=== PATIENT | male | born 1960 | race Caucasian/White ===

== ENCOUNTER 2024-09-11 07:02 | Emergency (ER) | payer MEDICARE, MEDICAID, SELFPAY ==
[2024-09-11 07:04] VITALS: BMI 22.4
[2024-09-11 07:12] VITALS: BP 95/63; PULSE 85; RESP 18; TEMP 36.6; O2SAT 98; BMI 22.4
--- NOTE | 2024-09-11 07:18 | XR_ITS ---
Examination: CT left knee, without contrast. 2-D sagittal reconstructions. 2-D coronal reconstructions. 3-D reconstructions. Date and time of exam:Left knee September 11, 2024 0725 hours INDICATIONS: Patient fell today with injury of the knee, knee pain CTDI: vol (mGy):7.8 DLP: (mGycm):264 Technique: Multiple 1.25 mm axial sections of the left knee without intravenous contrast have been obtained. 2-D sagittal and coronal reconstructions have been obtained. 3-D reconstructions have been obtained. Low dose protocols were performed. One or more of the following dose reduction techniques were used; automated exposure control, adjustment of the mA and/or KV according to patient size, use of iterative reconstruction technique. Findings: Acute comminuted fractures patella, up to 8 mm separation of the main fracture fragments Fracture distal femur which is old Visualized tibia and fibula are intact IMPRESSION: Acute comminuted fractures patella
--- NOTE | 2024-09-11 07:18 | XR_ITS ---
Examination: Knee, left , 3 views Technique: Knee AP, lateral, oblique 3 views Date and time of exam: August 23, 2024 0739 hours INDICATIONS: Patient fell last night with injury to the knee, knee pain. FINDINGS: Old fracture distal femoral shaft Below the knee amputation Patellar fracture which appears acute without major offset IMPRESSION: Patellar fracture which appears acute, clinical correlation advised
--- NOTE | 2024-09-11 07:19 | PD.EDRME ---
Rapid Medical Screening Exam RME Arrival date/time: 09/11/24 07:02 64-year-old male with DKA presents to the emergency department today for complaints of left knee pain and left tib-fib pain patient reports he had a fall last night Chief Complaint: Fall Time Seen by Provider: 09/11/24 07:10 Vital signs: Vital Signs Temperature 97.9 F 09/11/24 07:12 Pulse Rate 85 09/11/24 07:12 Respiratory Rate 18 09/11/24 07:12 Blood Pressure 95/63 09/11/24 07:12 Pulse Oximetry (%) 98 09/11/24 07:12 Oxygen Delivery Method Room Air 09/11/24 07:12
[2024-09-11] MEDS: HYDROcodone/APAP 5/325 TABLET 1 TAB PO (07:29)
[2024-09-11 08:54] VITALS: BP 123/70; PULSE 69; RESP 18; O2SAT 96
--- NOTE | 2024-09-11 09:16 | EKG_ITS ---
[facility] Test Date: 2024-09-11 Pat Name: MANUELA TINOCO Department: Room: - Gender: Male Manager Of Product: : 1960 Requested By: Bimal Chaudhry Order Number: [id number] Reading MD: Bimal Chaudhry Measurements Intervals [place] Rate: 67 P: 76 PA: 168 QRS: 53 QRSD: 89 T: 59 QT: 398 QTc: 420 Interpretive Statements SINUS RHYTHM WITH OCCASIONAL SUPRAVENTRICULAR PREMATURE COMPLEXES Compared to ECG 06/19/2023 15:39:47 Ventricular premature complex(es) no longer present /store/S0/[id number]/ecg/[id number].pdf
[2024-09-11] MEDS: KETOROLAC INJ 60 MG/2 ML VIAL 30 MG IM (09:47)
[2024-09-11] MEDS: HYDROmorphone INJ 2 MG/ML VIAL 1 MG IM (09:48)
[2024-09-11] MEDS: ONDANSETRON ODT 4 MG TABRAP PO (09:48)
[2024-09-11 10:45] LABS: Alanine Aminotransferase 43 U/L (10-49); Albumin, Serum 3.8 gm/dL (3.4-4.8); Albumin/Globulin Ratio 1.7 (1.2-2.2); Alkaline Phosphatase 71 U/L (46-116); Anion Gap 6 (7-16); Aspartate Amino Transferase 43 U/L (0-34); BUN/Creatinine Ratio 20 Ratio (12-20); Bilirubin,Total 0.5 mg/dL (0.3-1.2); Blood Urea Nitrogen 18 mg/dL (9-23); Calcium 8.6 mg/dL (8.3-10.6); Calcium (Corrected) 8.8 mg/dL (8.5-10.1); Carbon Dioxide 24.4 mMol/L (20.0-31.0); Chloride 110 mMol/L (98-107); Creatinine (Component) 0.9 mg/dL (0.6-1.3); Estimated Creatinine Clearance 91.6 mL/min (>60); Globulin 2.3 gm/dL (2.3-3.5); Glucose 77 mg/dL (74-106); Osmolality,Calculated 280 (275-295); Potassium 4.1 mMol/L (3.4-5.1); Sodium 140 mMol/L (136-145); Total Protein 6.1 gm/dL (5.7-8.2); eGFR > 60 See Note
[2024-09-11 10:52] LABS: Collection Type, Urine Clean Catch; Squamous Epithelial Cell,Urine 0 /hpf (0-5)
[2024-09-11 10:54] LABS: Basophils % (Auto) 1 % (0-2.5); Eosinophils # (Auto) 0.1 Thou/mm3 (0.0-0.5); Eosinophils % (Auto) 3 % (0-10); Hemoglobin 13.7 g/dL (13.5-16.0); Immature Granulocytes % (Auto) 0 % (0-0); Immature Granulocytes Auto 0.01 Thou/mm3 (0.00-0.00); Lymphocytes # (Auto) 1.3 Thou/mm3 (1.0-4.8); Lymphocytes % (Auto) 46 % (10-50); Mean Corpuscular HGB Conc 36.1 g/dl (31.0-37.0); Mean Corpuscular Hemoglobin 33.3 pg (25.0-35.0); Mean Corpuscular Volume 92 fL (80-100); Monocytes # (Auto) 0.4 Thou/mm3 (0.0-0.8); Monocytes % (Auto) 15 % (0-12); Neutrophils % (Auto) 35 % (37-80); Nucleated Red Blood Cell % 0 /100 WBC (0); Platelet Count 111 Thou/mm3 (140-440); RDW Standard Deviation 42.8 fL (35.1-43.9); Red Blood Count 4.12 Miln/mm3 (4.50-5.90)
[2024-09-11 11:03] LABS: White Blood Count 2.9 Thou/mm3 (3.8-10.6)
[2024-09-11 11:17] LABS: Partial Thromboplastin Time 31.4 Seconds (22.0-36.0); Prothrombin Time 10.7 Seconds (9.0-12.2)
[2024-09-11 11:23] LABS: Bilirubin,Urine Negative (Negative); Blood,Urine Negative (Negative); Clarity,Urine Clear (Clear/Hazy); Color,Urine Lt-Yellow (Lt Yel-Yel); Glucose, Urine Negative (Negative); Ketones,Urine Negative (Negative); Leukocyte Esterase,Urine Negative (Negative); Nitrite,Urine Negative (Negative); Protein,Urine Negative (Neg - Trace); RBC,Urine 3 /hpf (0-3); Specific Gravity,Urine 1.019 (1.001-1.035); Urobilinogen,Urine Negative mg/dL (0.0-1.0); WBC,Urine 1 /hpf (0-5)
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
== END 2024-09-11 12:35 | disposition home or self-care (01) ==
PROVIDERS: Emergency Provider Family Medicine; PCP Family Medicine
DX: S82.002A Unspecified fracture of left patella, initial encounter for closed fracture (principal); W01.0XXA Fall on same level from slipping, tripping and stumbling without subsequent striking against object, initial encounter; Y93.B3 Activity, free weights
CPT/HCPCS: 29505; 36415; 73562; 73700; 80053; 81001; 85025; 85610; 85730; 93005; 96372; 99284; J1171; J1885; Q0162; A9270